=== PATIENT | male | born 1995 | race American Indian/Alaskan Native ===

== ENCOUNTER 2019-07-25 23:45 | Emergency (ER) | payer MEDICAID ==
[~2019-07-25] VITALS: Ht 180.3 cm; Wt 78.5 kg
--- NOTE | 2019-07-26 01:03 | NUR ---
Spoke to Kamila Carter RN at [facility]. Awaiting call back from their trauma surgeon for updates.
--- NOTE | 2019-07-26 01:11 | NUR ---
Patient accepted at [facility] under Dr Fletcher. Patient to be transported to [place] [facility] for higher level of care due to trauma.
--- NOTE | 2019-07-26 01:16 | NUR ---
FLORIAN- 45min , BLS transport. Trip # [id number]
[2019-07-26 01:19] LABS: BASOPHILS % (AUTO) 0.4 % (0.0-2.0); EOSINOPHILS # (AUTO) 0.1 K/uL (0.0-0.7); HEMOGLOBIN 14.4 g/dL (12.5-16.3); LYMPHOCYTES # (AUTO) 2.5 K/uL (20.0-40.0); LYMPHOCYTES % (AUTO) 24.2 % (20.5-51.5); MEAN CORPUSCULAR HEMOGLOBIN 29.6 uug (23.8-33.4); MEAN CORPUSCULAR HGB CONC 34 g/dL (32.5-36.3); MONOCYTES # (AUTO) 0.9 K/uL (2.0-10.0); MONOCYTES % (AUTO) 8.8 % (0.0-11.0); NEUTROPHILS # (AUTO) 6.7 K/uL (1.8-8.9); NEUTROPHILS % (AUTO) 65.6 % (38.5-71.5); PLATELET COUNT (AUTO) 224 K/uL (152-348); RED BLOOD CELL COUNT(AUTO) 4.89 MIL/uL (4.06-5.63); WHITE BLOOD COUNT (AUTO) 10.2 K/uL (3.6-10.2)
[2019-07-26 01:24] LABS: CREATININE 0.9 mg/dL (0.6-1.3); POTASSIUM 3.9 mmol/L (3.5-5.1)
[2019-07-26 01:35] LABS: BILIRUBIN,DIRECT 0.2 mg/dL (0.0-0.2); BILIRUBIN,TOTAL 0.8 mg/dL (0.2-1.0); TOTAL PROTEIN, SERUM 7.3 g/dL (6.4-8.2)
--- NOTE | 2019-07-26 01:41 | NUR ---
Patient in CT at this time. No acute distress noted.
--- NOTE | 2019-07-26 01:45 | NUR ---
Patient father at bedside, family is aware that the patient is going to be transfered to [facility].
--- NOTE | 2019-07-26 01:46 | NUR ---
Patient back from CT at this time.
--- NOTE | 2019-07-26 02:06 | NUR ---
[facility] at bedside. Report given to Transmitter Supervisor Nai. Chart/EMTALA forms/Belongings with patient. C-spine precautions maintained.
== END 2019-07-26 02:10 | disposition short-term general hospital (02) ==
LOC: ER 23:52
DX: S12.100A Unspecified displaced fracture of second cervical vertebra, initial encounter for closed fracture (principal); S12.110A Anterior displaced Type II dens fracture, initial encounter for closed fracture; V43.52XA Car driver injured in collision with other type car in traffic accident, initial encounter; Y92.410 Unspecified street and highway as the place of occurrence of the external cause; S40.012A Contusion of left shoulder, initial encounter
CPT/HCPCS: 36415; 70450; 71045; 72125; 73020; 73030; 85025; 85730; A4663